=== PATIENT | male | born 1955 | race American Indian/Alaskan Native ===

== ENCOUNTER 2019-03-07 08:38 | Emergency (ER) | payer SELFPAY ==
[2019-03-07 09:19] LABS: Basophils # (Auto) 0.1 K/mm3 (0.0-0.1); Basophils % (Auto) 0.6 % (0.0-1.8); Eosinophils % (Auto) 0.2 % (0.0-4.3); Hematocrit 41.3 % (35.5-45.6); Hemoglobin 14.3 gm/dl (11.8-15.2); Lymphocytes # (Auto) 1.6 K/mm3 (1.2-5.4); Lymphocytes % (Auto) 17.7 % (13.4-35.0); Mean Corpuscular HGB Conc 35 % (32-34); Mean Corpuscular Volume 91 fl (84-94); Monocytes # (Auto) 0.5 K/mm3 (0.0-0.8); Monocytes % (Auto) 5.6 % (0.0-7.3); Platelet Count 318 K/mm3 (140-440); Red Blood Count 4.54 M/mm3 (3.65-5.03); Red Cell Distribution Width 13.4 % (13.2-15.2)
[2019-03-07 09:36] LABS: BUN/Creatinine Ratio 12; Blood Urea Nitrogen 17 mg/dL (9-20); Calcium 9.1 mg/dL (8.4-10.2); Hemolysis Index 31
[2019-03-07] MEDS ORDERED: NACL 0.9% 1000 ML 1,000 ML IV ONE (10:34)
[2019-03-07] MEDS ORDERED: ZOFRAN IV ONE (10:34)
--- NOTE | 2019-03-07 10:36 | Emergency Department Report ---
ED General Adult HPI - General Chief complaint: Abdominal Pain Stated complaint: VOMITING/CHILLS Time Seen by Provider: 03/07/19 10:01 Source: patient Mode of arrival: Ambulatory Limitations: No Limitations - History of Present Illness Initial comments: Patient presents to the emergency department with a chief complaint of nausea, vomiting, diarrhea for the last day. Patient does endorse some abdominal cramping but denies antonio abdominal pain. Patient denies any sick contacts at work or at home. Patient also denies chest pain, shortness, headache. No report of fever or recent antibiotic use. -: Sudden Severity scale (0 -10): 0 Consistency: constant Improves with: none Worsens with: none Associated Symptoms: denies other symptoms Treatments Prior to Arrival: none - Related Data Previous Rx's Medication Instructions Recorded Last Taken Type Ondansetron [Zofran] 4 mg PO Q6HR PRN #12 tablet 02/27/14 Unknown Rx levoFLOXacin [Levaquin] 750 mg PO QDAY #5 tablet 02/27/14 Unknown Rx Ondansetron [Zofran Odt] 4 mg PO Q4HR PRN #20 tab.rapdis 03/07/19 Unknown Rx Promethazine [Phenergan TAB] 25 mg PO Q6HR PRN #20 tab 03/07/19 Unknown Rx Allergies Allergy/AdvReac Type Severity Reaction Status Date / Time No Known Allergies Allergy Unverified 02/27/14 09:43 ED Review of Systems ROS: Stated complaint: VOMITING/CHILLS Other details as noted in HPI Comment: All other systems reviewed and negative Constitutional: denies: chills, fever Eyes: denies: eye pain, eye discharge, vision change ENT: denies: ear pain, throat pain Respiratory: denies: cough, shortness of breath, wheezing Cardiovascular: denies: chest pain, palpitations Endocrine: no symptoms reported Gastrointestinal: nausea, vomiting, diarrhea. denies: abdominal pain Genitourinary: denies: urgency, dysuria Musculoskeletal: denies: back pain, joint swelling, arthralgia Skin: denies: rash, lesions Neurological: denies: headache, weakness, paresthesias Psychiatric: denies: anxiety, depression Hematological/Lymphatic: denies: easy bleeding, easy bruising ED Past Medical Hx - Past Medical History Previous Medical History?: Yes Hx Hypertension: Yes - Surgical History Past Surgical History?: Yes Additional Surgical History: thyroidectomy. rotator cuff - Social History Smoking Status: Former Smoker Substance Use Type: Alcohol, Cocaine - Medications Home Medications: Home Medications Medication Instructions Recorded Confirmed Last Taken Type Ondansetron [Zofran] 4 mg PO Q6HR PRN #12 tablet 02/27/14 Unknown Rx levoFLOXacin [Levaquin] 750 mg PO QDAY #5 tablet 02/27/14 Unknown Rx Ondansetron [Zofran Odt] 4 mg PO Q4HR PRN #20 tab.rapdis 03/07/19 Unknown Rx Promethazine [Phenergan TAB] 25 mg PO Q6HR PRN #20 tab 03/07/19 Unknown Rx ED Physical Exam - General Limitations: No Limitations General appearance: alert, in no apparent distress - Head Head exam: Present: atraumatic, normocephalic - Eye Eye exam: Present: normal appearance - ENT ENT exam: Present: mucous membranes dry - Neck Neck exam: Present: normal inspection - Respiratory Respiratory exam: Present: normal lung sounds bilaterally. Absent: respiratory distress - Cardiovascular Cardiovascular Exam: Present: regular rate, normal rhythm. Absent: systolic murmur, diastolic murmur, rubs, gallop - GI/Abdominal GI/Abdominal exam: Present: soft, normal bowel sounds. Absent: distended, tenderness - Rectal Rectal exam: Present: deferred - Extremities Exam Extremities exam: Present: normal inspection - Back Exam Back exam: Present: normal inspection - Neurological Exam Neurological exam: Present: alert, oriented X3, CN II-XII intact. Absent: motor sensory deficit - Psychiatric Psychiatric exam: Present: normal affect, normal mood - Skin Skin exam: Present: warm, dry, intact, normal color. Absent: rash ED Course Vital Signs 03/07/19 03/07/19 08:42 11:37 Temperature 97.6 F Pulse Rate 86 Respiratory 16 18 Rate Blood Pressure 133/96 O2 Sat by Pulse 99 97 Oximetry ED Medical Decision Making - Lab Data Result diagrams: 03/07/19 09:04 03/07/19 09:04 Lab Results 03/07/19 03/07/19 03/07/19 Range/Units 09:04 09:04 09:04 WBC 8.8 (4.5-11.0) K/mm3 RBC 4.54 (3.65-5.03) M/mm3 Hgb 14.3 (11.8-15.2) gm/dl Hct 41.3 (35.5-45.6) % MCV 91 (84-94) fl MCH 31 (28-32) pg MCHC 35 H (32-34) % RDW 13.4 (13.2-15.2) % Plt Count 318 (140-440) K/mm3 Lymph % (Auto) 17.7 (13.4-35.0) % [place] % (Auto) 5.6 (0.0-7.3) % Eos % (Auto) 0.2 (0.0-4.3) % Baso % (Auto) 0.6 (0.0-1.8) % Lymph # 1.6 (1.2-5.4) K/mm3 [place] # 0.5 (0.0-0.8) K/mm3 Eos # 0.0 (0.0-0.4) K/mm3 Baso # 0.1 (0.0-0.1) K/mm3 Seg Neutrophils % 75.9 H (40.0-70.0) % Seg Neutrophils # 6.7 (1.8-7.7) K/mm3 Sodium 135 L (137-145) mmol/L Potassium 4.1 (3.6-5.0) mmol/L Chloride 96.2 L (98-107) mmol/L Carbon Dioxide 22 (22-30) mmol/L Anion Gap 21 mmol/L BUN 17 (9-20) mg/dL Creatinine 1.4 (0.8-1.5) mg/dL Estimated GFR > 60 ml/min BUN/Creatinine Ratio 12 % Glucose 102 H (75-100) mg/dL Calcium 9.1 (8.4-10.2) mg/dL Total Bilirubin 0.90 (0.1-1.2) mg/dL Direct Bilirubin 0.2 (0-0.2) mg/dL Indirect Bilirubin 0.7 mg/dL AST 31 (5-40) units/L ALT 29 (7-56) units/L Alkaline Phosphatase 68 (35-129) units/L Total Protein 8.3 H (6.3-8.2) g/dL Albumin 4.6 (3.9-5) g/dL Albumin/Globulin Ratio 1.2 % Lipase 8 L (13-60) units/L - Medical Decision Making Patient declined x-rays or CT of abdomen Symptoms improved with IV fluids and medications Critical care attestation.: If time is entered above; I have spent that time in minutes in the direct care of this critically ill patient, excluding procedure time. ED Disposition Clinical Impression: Nausea & vomiting, Diarrhea Disposition: DC-01 TO HOME OR SELFCARE Is pt being admited?: No Does the pt Need Aspirin: No Condition: Stable Instructions: Acute Nausea and Vomiting (ED), Acute Diarrhea (ED) Additional Instructions: Return if worse Referrals: KEREN BANSAL MD [Primary Care Provider] - 3-5 Days [facility] [Provider Group] - 3-5 Days [facility] [Provider Group] - 3-5 Days Time of Disposition: 12:19
[2019-03-07 11:11] LABS: Albumin 4.6 g/dL (3.9-5); Bilirubin,Direct 0.2 mg/dL (0-0.2)
[2019-03-07 12:26] VITALS: BP 186/93
== END 2019-03-07 12:51 | disposition home or self-care (01) ==
LOC: ED 08:38
DX: R11.2 Nausea with vomiting, unspecified (principal); R10.9 Unspecified abdominal pain; R19.7 Diarrhea, unspecified; I10 Essential (primary) hypertension; E89.0 Postprocedural hypothyroidism; Z87.891 Personal history of nicotine dependence; Z79.899 Other long term (current) drug therapy
CPT/HCPCS: 36415; 80048; 80076; 83690; 85025; 96361; 96374; 99283; J2405; J7030

== ENCOUNTER 2019-06-20 12:11 | Emergency (ER) | payer OTHER ==
[2019-06-20 12:19] VITALS: BP 163/98
--- NOTE | 2019-06-20 12:21 | Emergency Department Report ---
Blank Doc - Documentation Documentation: 63-year-old male that presents with right sided neck pain. Denies any injuries or trauma. This initial assessment/diagnostic orders/clinical plan/treatment(s) is/are subject to change based on patient's health status, clinical progression and re- assessment by fellow clinical providers in the ED. Further treatment and workup at subsequent clinical providers discretion. Patient/guardians urged not to elope from the ED as their condition may be serious if not clinically assessed and managed. Initial orders include: 1- Patient sent to [facility] for further evaluation and treatment
--- NOTE | 2019-06-20 13:31 | Emergency Department Report ---
ED Extremity Problem HPI - General Chief complaint: Extremity Injury, Upper Stated complaint: SHOULDER/NECK PAIN Time Seen by Provider: 06/20/19 12:19 Source: patient Mode of arrival: Ambulatory Limitations: No Limitations - History of Present Illness Initial comments: Patient is a 63-year-old -[place] male who is complaining of right shoulder pain is sometimes radiates into the upper right arm. Patient states symptoms present for the past 2-3 days are constant. Hers worse with turning his head moving his shoulder and his right upper extremity. He denies fevers chills trauma cough cold congestion at this time. Patient states that pain is achy sensation and is 10 out of 10 in severity. - Related Data Previous Rx's Medication Instructions Recorded Last Taken Type Ondansetron [Zofran] 4 mg PO Q6HR PRN #12 tablet 02/27/14 Unknown Rx levoFLOXacin [Levaquin] 750 mg PO QDAY #5 tablet 02/27/14 Unknown Rx Ondansetron [Zofran Odt] 4 mg PO Q4HR PRN #20 tab.rapdis 03/07/19 Unknown Rx Promethazine [Phenergan TAB] 25 mg PO Q6HR PRN #20 tab 03/07/19 Unknown Rx methOCARBAMOL [Robaxin TAB] 500 mg PO Q6H PRN #14 tablet 06/20/19 Unknown Rx predniSONE [Deltasone] 20 mg PO QDAY #5 tab 06/20/19 Unknown Rx traMADol [Ultram] 50 mg PO Q6HR PRN #12 tablet 06/20/19 Unknown Rx Allergies Allergy/AdvReac Type Severity Reaction Status Date / Time No Known Allergies Allergy Unverified 02/27/14 09:43 ED Review of Systems ROS: Stated complaint: SHOULDER/NECK PAIN Other details as noted in HPI Comment: All other systems reviewed and negative ED Past Medical Hx - Past Medical History Hx Hypertension: Yes - Surgical History Additional Surgical History: thyroidectomy. rotator cuff - Social History Smoking Status: Never Smoker Substance Use Type: Alcohol - Medications Home Medications: Home Medications Medication Instructions Recorded Confirmed Last Taken Type Ondansetron [Zofran] 4 mg PO Q6HR PRN #12 tablet 02/27/14 Unknown Rx levoFLOXacin [Levaquin] 750 mg PO QDAY #5 tablet 02/27/14 Unknown Rx Ondansetron [Zofran Odt] 4 mg PO Q4HR PRN #20 tab.rapdis 03/07/19 Unknown Rx Promethazine [Phenergan TAB] 25 mg PO Q6HR PRN #20 tab 03/07/19 Unknown Rx methOCARBAMOL [Robaxin TAB] 500 mg PO Q6H PRN #14 tablet 06/20/19 Unknown Rx predniSONE [Deltasone] 20 mg PO QDAY #5 tab 06/20/19 Unknown Rx traMADol [Ultram] 50 mg PO Q6HR PRN #12 tablet 06/20/19 Unknown Rx ED Physical Exam - General Limitations: No Limitations General appearance: alert, in no apparent distress - Head Head exam: Present: atraumatic, normocephalic - Eye Eye exam: Present: normal appearance - ENT ENT exam: Present: mucous membranes moist - Neck Neck exam: Present: normal inspection - Respiratory Respiratory exam: Present: normal lung sounds bilaterally. Absent: respiratory distress - Cardiovascular Cardiovascular Exam: Present: regular rate, normal rhythm. Absent: systolic murmur, diastolic murmur, rubs, gallop - GI/Abdominal GI/Abdominal exam: Present: soft, normal bowel sounds - Rectal Rectal exam: Present: deferred - Extremities Exam Extremities exam: Present: normal inspection - Expanded Upper Extremity Exam Right Shoulder Exam: Present: other (tenderness at the right trapezius and right lower neck. There is no midline tenderness to the cervical spine.) - Back Exam Back exam: Present: normal inspection - Neurological Exam Neurological exam: Present: alert, oriented X3 - Psychiatric Psychiatric exam: Present: normal affect, normal mood - Skin Skin exam: Present: warm, dry, intact, normal color. Absent: rash ED Course Vital Signs 06/20/19 12:18 Temperature 97.8 F Pulse Rate 80 Respiratory 18 Rate Blood Pressure 163/98 O2 Sat by Pulse 96 Oximetry ED Medical Decision Making - Medical Decision Making Patient likely with a cervical radiculopathy causing patient's symptoms. Patient given medications for symptomatic relief will be discharged home. Critical care attestation.: If time is entered above; I have spent that time in minutes in the direct care of this critically ill patient, excluding procedure time. ED Disposition Clinical Impression: Cervical radiculitis Disposition: - TO HOME OR SELFCARE Is pt being admited?: No Does the pt Need Aspirin: No Condition: Stable Instructions: Cervical Radiculopathy (ED) Referrals: AKANKSHA BRIZUELA MD [Staff Physician] - 7-10 days Time of Disposition: 13:30
== END 2019-06-20 13:38 | disposition home or self-care (01) ==
LOC: ED 12:11
DX: M54.12 Radiculopathy, cervical region (principal); I10 Essential (primary) hypertension; E89.0 Postprocedural hypothyroidism; Z79.899 Other long term (current) drug therapy

== ENCOUNTER 2019-10-10 15:57 | Emergency (ER) | payer OTHER ==
--- NOTE | 2019-10-10 17:33 | Emergency Department Report ---
Blank Doc - Documentation Documentation: 63-year-old male that presents with fever and cough. Has taken dayquil today. This initial assessment/diagnostic orders/clinical plan/treatment(s) is/are subject to change based on patient's health status, clinical progression and re- assessment by fellow clinical providers in the ED. Further treatment and workup at subsequent clinical providers discretion. Patient/guardians urged not to elope from the ED as their condition may be serious if not clinically assessed and managed. Initial orders include: 1- Patient sent to [facility] for further evaluation and treatment 2- CXR
--- NOTE | 2019-10-10 18:19 | XRay Report ---
CHEST 2 VIEWS INDICATION / CLINICAL INFORMATION: cough. COMPARISON: None available. FINDINGS: SUPPORT DEVICES: None. HEART / MEDIASTINUM: Heart size is normal. Thoracic aorta is moderately tortuous. LUNGS / PLEURA: No significant pulmonary or pleural abnormality. No pneumothorax. ADDITIONAL FINDINGS: No significant additional findings. IMPRESSION: 1. No acute findings. Signer Name: Garcia Reardon MD Signed: 10/10/2019 6:14 PM Workstation Name: [id number]
--- NOTE | 2019-10-10 20:20 | Emergency Department Report ---
Chief Complaint: Upper Respiratory Infection Stated Complaint: FLU SYM Time Seen by Provider: 10/10/19 17:31 - HPI History of Present Illness: 63-year-old -[place] male presents to the emergency room complaining of fever cough and body aches that started on Monday. Patient reports has been taken DayQuil. Patient is followed [facility] but did not follow-up with them. - Exam Vital Signs: Vital Signs 10/10/19 16:20 Temperature 99.2 F Pulse Rate 72 Respiratory 18 Rate Blood Pressure 174/98 O2 Sat by Pulse 94 Oximetry Physical Exam: Alert and oriented x3 no acute distress nontoxic in appearance HEENT oral mucosa is moist no tonsillar hypertrophy or exudate. Chest clear to auscultation bilateral no coughing appreciated. Cardiac regular rate and rhythm no murmurs appreciated. Abdomen soft nondistended nontender. Patient is amatory without difficulties. MSE screening note: Focused history and physical exam performed. Due to findings the following was ordered: 63-year-old -[place] male presents to the emergency room complaining of fever cough and body aches that started on Monday. Patient reports has been taken DayQuil. Patient is followed by [facility] but did not follow-up with them. Chest x-ray is negative for any acute findings. Discussed with patient he can take ibuprofen or Tylenol for body aches and fever he can take [id number] Robitussin or Claritin for cough. [facility] are [facility] present. Discussed patient to increase his fluid intake. ED Disposition for MSE Clinical Impression: Viral syndrome Disposition: Z-07 MED SCREENING EXAM-LEFT Is pt being admited?: No Does the pt Need Aspirin: No Condition: Stable Instructions: Viral Syndrome (ED) Additional Instructions: Chest x-ray is negative for any acute findings. Discussed with patient he can take ibuprofen or Tylenol for body aches and fever he can take [id number] Robitussin or Claritin for cough. [facility] if symptoms are still present. Discussed patient to increase his fluid intake. Referrals: PRIMARY CARE, [Primary Care Provider] - 3-5 Days [facility] [Outside] - 3-5 Days Forms: Work/School Release Form(ED)
[2019-10-10 21:25] VITALS: BP 168/94
== END 2019-10-10 21:24 | disposition left against medical advice (07) ==
LOC: ED 15:57
DX: B34.9 Viral infection, unspecified (principal)
CPT/HCPCS: 71046; 99283

== ENCOUNTER 2020-10-30 11:35 | Emergency (ER) | payer OTHER ==
[2020-10-30 11:43] VITALS: BP 138/77
--- NOTE | 2020-10-30 11:43 | Emergency Department Report ---
Stated Complaint: VACCINATION SIDE EFFECTS Time Seen by Provider: 10/30/20 11:41 - HPI History of Present Illness: got second [employer] covid vaccine yesterday feels achy today missed work pt states they did not tell him he'd feel bad - ROS Review of Systems: achy arm sore fatigue - Exam Vital Signs: Vital Signs 10/30/20 11:41 Temperature 99.0 F Pulse Rate 75 Respiratory 18 Rate Blood Pressure 138/77 O2 Sat by Pulse 99 Oximetry Physical Exam: a/o lungs cta abd snt vs normal MSE screening note: Focused history and physical exam performed. Due to findings the following was ordered: no life threat expected response to vaccine Patient discussed with doctor:: GUIDO LOTT ED Disposition for MSE Clinical Impression: Status post administration of all doses of COVID-19 vaccine series Disposition: MED SCREENING EXAM-LEFT Is pt being admited?: No Does the pt Need Aspirin: No Condition: Stable Referrals: KAEL LUTHER MD [Staff Physician] - 3-5 Days Forms: Work/School Release Form(ED) Time of Disposition: 11:42
== END 2020-10-30 11:45 | disposition left against medical advice (07) ==
LOC: ED 11:35
DX: R53.83 Other fatigue (principal); Z92.29 Personal history of other drug therapy; Z53.21 Procedure and treatment not carried out due to patient leaving prior to being seen by health care provider

== ENCOUNTER 2021-01-28 13:37 | Emergency (ER) | payer OTHER ==
[2021-01-28 14:05] VITALS: BP 131/90
--- NOTE | 2021-01-28 15:22 | Event Note ---
ED Screening Note ED Screening Note: hx of anxiety states he is feeling depressed states he has not been wanting to eat he denies any SI or HI denies any hallucinations states he was previously on zoloft a couple years ago he reports for v/d for 3 days states he has abdominal cramping he denies any CP or SOB no allergies to meds This initial assessment/diagnostic orders/clinical plan/treatment(s) is/are subject to change based on patients health status, clinical progression and re- assessment by fellow clinical providers in the ED. Further treatment and workup at subsequent clinical providers discretion. Patient/guardian urged not to elope from the ED as their condition may be serious if not clinically assessed and managed. Initial orders include: labs, UA
[2021-01-28 15:39] LABS: Basophils % (Auto) 0.7 % (0.0-1.8); Eosinophils # (Auto) 0.1 K/mm3 (0.0-0.4); Eosinophils % (Auto) 1.9 % (0.0-4.3); Hematocrit 38.9 % (35.5-45.6); Hemoglobin 13.1 gm/dl (11.8-15.2); Lymphocytes # (Auto) 1.6 K/mm3 (1.2-5.4); Lymphocytes % (Auto) 26.4 % (13.4-35.0); Mean Corpuscular HGB Conc 34 % (32-34); Mean Corpuscular Volume 93 fl (84-94); Monocytes # (Auto) 0.6 K/mm3 (0.0-0.8); Platelet Count 263 K/mm3 (140-440); Red Blood Count 4.18 M/mm3 (3.65-5.03); Red Cell Distribution Width 14.6 % (13.2-15.2)
[2021-01-28 15:57] LABS: Alanine Aminotransferase 11 units/L (7-56); Albumin 4.8 g/dL (3.9-5); BUN/Creatinine Ratio 16; Blood Urea Nitrogen 21 mg/dL (9-20); Calcium 9.2 mg/dL (8.4-10.2); Hemolysis Index 9
--- NOTE | 2021-01-28 17:54 | Emergency Department Report ---
ED General Adult HPI - General Chief complaint: Anxiety Stated complaint: VOMITING Time Seen by Provider: 01/28/21 15:21 Source: patient Mode of arrival: Ambulatory Limitations: No Limitations - History of Present Illness Initial comments: 65-year-old male patient with history of anxiety and depression presents to the emergency department with complaints of nausea and vomiting for 3 days. Patient states his symptoms began after he found out his mother was ill. [place] of [place] he has been feeling particularly stressed due to his inabil ity to travel out of state to be with her. No known sick contacts. No current steroid or antibiotic use. Last bowel movement was 2 days ago. No history of prior abdominal surgeries. Denies fever, chills, abdominal pain, black/bloody stools, urinary symptoms, suicidal ideation, homicidal ideation, hallucinations. Denies all other complaints at this time. - Related Data Previous Rx's Medication Instructions Recorded Last Taken Type Ondansetron [Zofran] 4 mg PO Q6HR PRN #12 tablet 02/27/14 Unknown Rx levoFLOXacin [Levaquin] 750 mg PO QDAY #5 tablet 02/27/14 Unknown Rx Ondansetron [Zofran Odt] 4 mg PO Q4HR PRN #20 tab.rapdis 03/07/19 Unknown Rx Promethazine [Phenergan TAB] 25 mg PO Q6HR PRN #20 tab 03/07/19 Unknown Rx methOCARBAMOL [Robaxin TAB] 500 mg PO Q6H PRN #14 tablet 06/20/19 Unknown Rx predniSONE [Deltasone] 20 mg PO QDAY #5 tab 06/20/19 Unknown Rx traMADoL [Ultram] 50 mg PO Q6HR PRN #12 tablet 06/20/19 Unknown Rx Ondansetron [Zofran Odt] 4 mg PO Q4H #20 tab.rapdis 01/28/21 Unknown Rx Allergies Allergy/AdvReac Type Severity Reaction Status Date / Time No Known Allergies Allergy Verified 01/28/21 13:58 ED Review of Systems ROS: Stated complaint: VOMITING Other details as noted in HPI Other: GENERAL: Negative for fever, chills, weight change, anorexia, fatigue. ENT: Negative for ear pain, difficulty hearing, sore throat, nasal congestion, epistaxis. CARDIOVASCULAR: Negative for chest pain, palpitations, lower extremity swelling. PULMONARY: Negative for cough, dyspnea, wheezing, orthopnea, cyanosis. GASTROINTESTINAL: Positive for nausea and vomiting. MUSCULOSKELETAL: Negative for joint pain, joint swelling, myalgias, back pain, neck pain. NEUROLOGICAL: Negative for headache, seizure, syncope, paresthesias, weakness. INTEGUMENTARY: Negative for erythema, rash, diaphoresis, laceration, ecchymosis. HEMATOLOGICAL: Negative for hemoptysis, hematemesis, hematochezia, hematuria. PSYCHIATRIC: Positive for anxiety and depression. ED Past Medical Hx - Past Medical History Hx Hypertension: Yes Hx Psychiatric Treatment: Yes (ANXIETY/ DEPRESSION) - Surgical History Additional Surgical History: thyroidectomy. rotator cuff - Social History Smoking Status: Current Every Day Smoker Substance Use Type: None - Medications Home Medications: Home Medications Medication Instructions Recorded Confirmed Last Taken Type Ondansetron [Zofran] 4 mg PO Q6HR PRN #12 tablet 02/27/14 Unknown Rx levoFLOXacin [Levaquin] 750 mg PO QDAY #5 tablet 02/27/14 Unknown Rx Ondansetron [Zofran Odt] 4 mg PO Q4HR PRN #20 tab.rapdis 03/07/19 Unknown Rx Promethazine [Phenergan TAB] 25 mg PO Q6HR PRN #20 tab 03/07/19 Unknown Rx methOCARBAMOL [Robaxin TAB] 500 mg PO Q6H PRN #14 tablet 06/20/19 Unknown Rx predniSONE [Deltasone] 20 mg PO QDAY #5 tab 06/20/19 Unknown Rx traMADoL [Ultram] 50 mg PO Q6HR PRN #12 tablet 06/20/19 Unknown Rx Ondansetron [Zofran Odt] 4 mg PO Q4H #20 tab.rapdis 01/28/21 Unknown Rx ED Physical Exam - General Limitations: No Limitations - Other Other exam information: General: Awake and alert. No acute distress. Head: Atraumatic, normocephalic. Eyes: EOMI. Pupils are equal and round. Normal sclera and conjunctiva. ENT: Oral mucosa is moist. Normal pharyngeal exam. Neck: Supple. No lymphadenopathy. Pulmonary: No respiratory distress. Clear to auscultation bilaterally. Cardiac: Regular rate and rhythm. Pulses are palpable and equal bilaterally. No lower extremity cyanosis or edema. Skin: Warm and dry. No rashes. Abdomen: Soft, non-tender, non-protuberant. No guarding, rigidity, or rebound. Bowel sounds are normal. No organomegaly or masses noted. McBurney's point is nontender. Dalton sign is negative. Back: Normal alignment. No CVA tenderness. Extremities: Symmetrical. Full range of motion intact. Neurological: Alert and oriented, appropriately interactive, no focal deficits. Psych: Cooperative. Appropriate mood and affect. Speech is evenly metered. Thoughts are logically construed. ED Course Vital Signs 01/28/21 14:04 Temperature 98.0 F Pulse Rate 92 H Respiratory 18 Rate Blood Pressure 131/90 O2 Sat by Pulse 98 Oximetry ED Medical Decision Making - Lab Data Result diagrams: 01/28/21 15:26 01/28/21 15:26 - Medical Decision Making Differential diagnosis including but not limited to: dehydration, electrolyte abnormality, hypoglycemia, viral infection, bowel obstruction, bowel perforation, appendicitis, diverticulitis, pancreatitis, cholecystitis On reevaluation, patient remains stable. Repeat abdominal exam is benign. Symptoms have resolved spontaneously. He has had no further vomiting in the emergency department. He has drank both water and Coca-Cola while in the emergency department and states he is not experiencing any nausea. He was offered antiemetics but politely refused due to the improvement in his symptoms. Patient states he feels ready to go home and is requesting a work note for the next few days. Labs are unremarkable. He is afebrile, hemodynamically stable, appears well-hydrated. With regards to patient's depression and anxiety, he adamantly denies suicidal and homicidal ideation. Suspect patient's GI symptoms may be attributable to recent stress vs. viral intestinal infection. There is no clinical indication for further diagnostic work-up on an emergent basis at this time. Patient will be discharged home with antiemetics and referral to primary care provider for close outpatient follow-up. Patient expressed understanding and is agreeable to plan of care. Disease transmission precautions discussed. Strict return precautions provided. Repeat exam is unremarkable and benign. History, exam, diagnostic testing, and current condition do not suggest worrisome pathology to warrant further testing, continued ED treatment, admission, or surgical evaluation at this point. Given the low probability of a significant medical illness, it would be more likely to result in harm than benefit to perform further testing at this stage. Discussed findings, presumptive diagnosis, need for follow-up and specific signs/symptoms that should prompt immediate return to the emergency department. Instructions were explained in detail to the patient in addition to giving written discharge information. Patient expressed understanding and was given the opportunity to ask questions, all of which were satisfactorily answered prior to discharge home. Critical care attestation.: If time is entered above; I have spent that time in minutes in the direct care of this critically ill patient, excluding procedure time. ED Disposition Clinical Impression: Nausea & vomiting Qualifiers: Vomiting type: unspecified Vomiting Intractability: non-intractable Qualified Code(s): R11.2 - Nausea with vomiting, unspecified Disposition: DC-01 TO HOME OR SELFCARE Is pt being admited?: No Does the pt Need Aspirin: No Condition: Stable Instructions: Nausea and Vomiting, Adult Additional Instructions: Take Zofran as directed for nausea/vomiting. Rest. Drink plenty of fluids. Wash hands frequently to prevent disease transmission. Do not share food or drinks with others. Gradually advance diet slowly as tolerated. Follow-up with primary care provider this week. Call tomorrow to schedule an ap pointment. See referral information below. Return to the emergency department immediately for new or worsening symptoms. Specifically, return to the emergency department immediately for fever, abdomi nal pain, worsening vomiting, black/bloody stools, dehydration, thoughts of self-harm, hallucinations, or any other concerns. Prescriptions: Ondansetron [Zofran Odt] 4 mg PO Q4H #20 tab.rapdis Referrals: KAEL LUTHER MD [Staff Physician] - 3-5 Days [facility] [Outside] - 3-5 Days [facility] [Outside] - 3-5 Days [facility] [Outside] - 3-5 Days [facility] [Provider Group] - 3-5 Days Forms: Work/School Release Form(ED) Time of Disposition: 17:55
== END 2021-01-28 18:00 | disposition home or self-care (01) ==
LOC: ED 13:37
DX: R11.2 Nausea with vomiting, unspecified (principal); I10 Essential (primary) hypertension; F32.9 Major depressive disorder, single episode, unspecified; F41.9 Anxiety disorder, unspecified; F17.200 Nicotine dependence, unspecified, uncomplicated; Z79.899 Other long term (current) drug therapy; Z98.890 Other specified postprocedural states
CPT/HCPCS: 36415; 80053; 83690; 85025